=== PATIENT | male | born 1995 | race African-American/Black ===

== ENCOUNTER 2017-04-14 10:34 | Day surgery (SDC) | payer OTHER ==
[~2017-04-14] VITALS: Ht 172.7 cm; Wt 80.0 kg
[~2017-04-14 10:34] MED LIST: CHOL10003 PO; HYDROmorphone 2 MG/ML VIAL IV PRN; IV RINGERS,LACTATED 1000ML 1,000 ML IV SCH; LIDOCAINE 1% PF 2 ML VIAL. ID PRN; MORPHINE SULFATE 2 MG/ML DISP.SYRIN. IV PRN; ONDANSETRON PF 4 MG/2 ML VIAL. IV PRN; PROCHLORPERAZINE 10 MG/2 ML VIAL. IV PRN; SERT100T PO
[2017-04-14] MEDS ORDERED: EPINEPHrine VIAL 30 MG/30 ML VIAL ONE (11:01)
[2017-04-14] MEDS ORDERED: BUPIVACAINE MPF 0.5% 30 ML VIAL. ONE (11:01)
[2017-04-14] MEDS ORDERED: PROPOFOL 20 ML IV ONE (11:32)
[2017-04-14] MEDS ORDERED: ONDANSETRON PF 4 MG/2 ML VIAL. ONE (11:33)
[2017-04-14] MEDS ORDERED: fentaNYL PF VIAL 100 MCG/2 ML VIAL ONE (11:33)
[2017-04-14] MEDS ORDERED: LIDOCAINE 2% PF Vial for OR 5 ML VIAL. ONE (11:33)
[2017-04-14] MEDS ORDERED: BUPIVAC MPF-EPI 0.5%-1:200000 30 ML VIAL. ONE (11:50)
[2017-04-14] MEDS ORDERED: MIDAZOLAM HCL/PF 2 MG/2 ML VIAL. ONE (11:57)
[2017-04-14] MEDS ORDERED: SEVOFLURANE > 120 MINUTES. IH ONE (11:57)
[2017-04-14] MEDS ORDERED: DEXAMETHASONE SOD PHOS 20 MG/5 ML VIAL. ONE (12:19)
[2017-04-14] MEDS ORDERED: KETOROLAC 30 MG/ML INJ FOR OR. INJ ONE (12:23)
[2017-04-14] MEDS ORDERED: MORPHINE SULFATE 10 MG/ML VIAL. ONE (13:47)
--- NOTE | 2017-04-14 14:10 | DISCH ---
DISCHARGE INSTRUCTIONS Condition on Discharge Condition on Discharge: Stable Activity After Discharge Activity Instructions for Disc: Other, see below Other activity instructions: weightbearing as tolerated with crutches Weight Bearing Status after Di: As tolerated Diet after Discharge Diet after Discharge: Regular Wound Incision Care Wound/Incision Care: Ice to area for comfort, Keep wound elevated Other wound/incision instructi: May remove dressing in 2 days may then shower Community/Resources/Services Services at Discharge: PT EVALUATE & TREAT (start physical therapy next week) Contacting the [facility] after DC Call your doctor for: Concerns you may have Follow-Up Follow up with: Jerilyn 10 days MARIANNE SOLITARIO MD Apr 14, 2017 14:10
[2017-04-14] MEDS: fentaNYL PF VIAL 100 MCG/2 ML VIAL IV PRN ×5 (14:12→15:10)
[2017-04-14] MEDS ORDERED: OXYC-327 PO (14:16)
--- NOTE | 2017-04-14 14:38 | PDOC4 ---
Operative Note Operative Note Date of surgery: 04/14/2017 Preoperative diagnosis: Anterior cruciate ligament tear right knee Postoperative diagnosis: Same Operative procedure: Right knee arthroscopy allograft anterior cruciate ligament reconstruction Surgeon: Jerilyn Anesthesia: Gen. endotracheal Complications: None Estimated blood loss: 5 mL Operative indications: A she is a 21-year-old male that sustained an ACL injury to his right knee and has had pain swelling and instability since then we had discussed the structure and function of the ACL limitations of nonoperative management possibility of bracing or operative reconstruction along with risks benefits postoperative course of the reconstruction procedure using his own tissue versus donor tissue possibility of disease transmission infection nerve or blood vessel damage recurrent instability medical or other anesthetic consultations among others and especially the long rehabilitation timeframe that is expected. All his questions were answered he wishes to proceed with surgical evaluation and treatment Operative text: Patient was identified procedure verified patient placed in the supine position on the operating table. After adequate amounts of general endotracheal anesthesia were administered the right lower extremity was prepped and draped in standard sterile fashion examined under anesthesia found to have increased translation with soft endpoint on Grabiel and anterior drawer testing. No associated instability Was noted. After timeout was performed patient procedure identified and verified the right lower extremity was exsanguinated by Esmarch bandage. A standard lateral portal was established a medial portal established using spinal needle localization and the knee joint was systematically examined. Patellofemoral geniculate elation was noted to be in good condition no loose bodies noted in the gutters or suprapatellar pouch. Medial and lateral menisci were probed and found to be intact ACL was torn as expected remnants were debrided to allow visualization and the notch and tibial attachment a posterior tibial tendon was prepared on the back table whip stitched and measured at a size 9.5. Femoral tunnel was placed at the 11:30 position and drilled to 30 mm cortex was drilled with the 4 mm drill bit and any bony fragments were evacuated. Tibial drill guide was then used to drilled to the anatomic footprint again 9.5 mm and tissue and bony fragments were cleared away with arthroscopic shaver. A Biomet toggle lock was then placed around the graft and was passed through in the toggle lock was engaged on the bony cortex the graft was then evenly pulled into the femoral tunnel and verified to be seated it was taken through flexion and extension cycles to ensure no loosening and the graft was tensioned and taken through further flexion and extension cycles using the Caspari tensioning boot and fixation was accomplished with an aperture fix peak implant by [facility] excellent fixation was obtained ACL was noted to be tight knee ligament stability was completely restored and full range of motion retained. Thorough irrigation carried out of the anterior medial area which was closed with buried Vicryl suture subcuticular Monocryl portals were closed with nylon suture fat pad and knee joint worse injected with 1/2% plain Marcaine and sterile dressings were applied toes were noted be warm pink following deflation of tourniquet patient was extubated transferred to postop holding in stable condition having tolerated procedure well MARIANNE SOLITARIO MD Apr 14, 2017 14:38
[2017-04-14 15:15] VITALS: BP 123/83
[2017-04-14] MEDS ORDERED: oxyCODONE/APAP 7.5/325 1 TAB TABLET PO PRN (15:15)
== END 2017-04-14 16:04 | disposition home or self-care (01) ==
LOC: SURG 10:34
PROVIDERS: ATTEND Orthopaedic Surgery
DX: S83.511A Sprain of anterior cruciate ligament of right knee, initial encounter (principal); X58.XXXA Exposure to other specified factors, initial encounter; Y93.89 Activity, other specified; Y92.89 Other specified places as the place of occurrence of the external cause; Y99.8 Other external cause status; J45.909 Unspecified asthma, uncomplicated; E66.9 Obesity, unspecified; Z68.26 Body mass index [BMI] 26.0-26.9, adult; F32.9 Major depressive disorder, single episode, unspecified; F17.200 Nicotine dependence, unspecified, uncomplicated; Z87.39 Personal history of other diseases of the musculoskeletal system and connective tissue; Z72.89 Other problems related to lifestyle; Z98.890 Other specified postprocedural states
CPT/HCPCS: 29888; C1713; J0171; J0690; J1100; J1885; J2250; J2270; J2405; J2704; J3010; J3490; J2001

== ENCOUNTER 2017-08-25 19:30 | Emergency (ER) | payer OTHER ==
[2017-08-25] MEDS: metroNIDAZOLE 500 MG TABLET PO (20:04)
[2017-08-25] MEDS: cefTRIAXone IM 250 MG VIAL IM (20:04)
[2017-08-25] MEDS: AZITHROMYCIN 250 MG TABLET. PO (20:04)
[2017-08-25 20:08] LABS: BILIRUBIN,URINE NEGATIVE (NEG); CLARITY,URINE TURBID; COLOR,URINE YELLOW; GLUCOSE,URINE NEGATIVE (NEG); NITRITE,URINE NEGATIVE (NEG); PROTEIN,URINE NEGATIVE (NEG-TRACE)
[2017-08-25 20:16] LABS: RBC,URINE 0 /HPF (0-2)
[2017-08-25 20:17] LABS: AMORPHOUS SEDIMENT,UR PRESENT /HPF; BACTERIA,URINE 0 /HPF (0-FEW); SQUAMOUS EPITHELIAL CELL,UR OCC /LPF
== END 2017-08-25 20:27 | disposition home or self-care (01) ==
LOC: ER 19:30
DX: R30.0 Dysuria (principal); Z88.5 Allergy status to narcotic agent
CPT/HCPCS: 81001; 87491; 87591; 96372; 99284-25; J0696; Q0144